=== PATIENT | female | born 1940 | race Caucasian/White ===

== ENCOUNTER 2024-11-18 12:03 | Emergency (ER) | payer OTHER ==
[~2024-11-18] VITALS: Ht 157.5 cm; Wt 65.8 kg
[2024-11-18] MEDS ORDERED: HUMALOG100 UNIT/2 (12:42)
[2024-11-18] MEDS ORDERED: LANTUS SOL100 UNIT/1 SUBCUTANEO (12:44)
[2024-11-18] MEDS ORDERED: XIGDUO XR 5 MG1 EACH PO (12:45)
[2024-11-18] MEDS ORDERED: LEVO-T25 MCG PO (12:46)
[2024-11-18] MEDS ORDERED: RAYOS1 MG PO (12:47)
[2024-11-18] MEDS ORDERED: AMIODARONE HCL100 MG PO (12:48)
[2024-11-18] MEDS ORDERED: NORVASC5 MG PO (12:48)
[2024-11-18] MEDS ORDERED: COZAAR50 MG PO (12:48)
[2024-11-18] MEDS ORDERED: HYDROCHLOROTH12.5 MG PO (12:49)
[2024-11-18] MEDS ORDERED: LIPITOR40 MG PO (12:50)
[2024-11-18] MEDS ORDERED: MONTELUKAST SODI4 M1 PO (12:50)
[2024-11-18] MEDS ORDERED: RISPERIDONE O0.25 MG PO (12:51)
[2024-11-18] MEDS ORDERED: VENLAFAXINE HC150 MG PO (12:51)
[2024-11-18] MEDS ORDERED: LAMOTRIGINE25 MG PO (12:51)
[2024-11-18] MEDS ORDERED: ELIQUIS2.5 MG PO (12:53)
[2024-11-18] MEDS ORDERED: CEFTRIAXONE SODIUM 1,000 MG VIAL IM STA (13:34)
[2024-11-18] MEDS ORDERED: HYDROCODONE/CHLORPHEN P-STIREX 5 ML ML PO STA (13:34)
[2024-11-18] MEDS ORDERED: CEFTRIAXONE SODIUM 1,000 MG VIAL ONE (14:00)
== END 2024-11-18 15:09 | disposition home or self-care (01) ==
LOC: ER 12:03
DX: J06.9 Acute upper respiratory infection, unspecified (principal)
CPT/HCPCS: 96372; 99282; J0696

== ENCOUNTER 2025-03-17 17:57 | Emergency (ER) | payer OTHER ==
[~2025-03-17] VITALS: Ht 157.5 cm; Wt 61.2 kg
[~2025-03-17 17:57] MED LIST: AMIODARONE HCL100 MG PO; COZAAR50 MG PO; ELIQUIS2.5 MG PO; HUMALOG100 UNIT/2; HYDROCHLOROTH12.5 MG PO; LAMOTRIGINE25 MG PO; LANTUS SOL100 UNIT/1 SUBCUTANEO; LEVO-T25 MCG PO; LIPITOR40 MG PO; MONTELUKAST SODI4 M1 PO; NORVASC5 MG PO; RAYOS1 MG PO; RISPERIDONE O0.25 MG PO; VENLAFAXINE HC150 MG PO; XIGDUO XR 5 MG1 EACH PO
[2025-03-17] MEDS ORDERED: MAGNESIUM SULFATE IN WATER 2 GM/50 ML PIGGYBAG IV ONE (19:15)
[2025-03-17] MEDS ORDERED: METHYLPREDNISOLONE SOD SUCC 125 MG VIAL IV ONE (19:15)
[2025-03-17] MEDS ORDERED: CEFTRIAXONE SODIUM 1,000 MG VIAL IV ONE (19:15)
[2025-03-17] MEDS ORDERED: IPRATROPIUM BROMIDE 0.5 MG/2.5 ML AMPUL.NEB IH SCH (19:15)
[2025-03-17] MEDS ORDERED: LEVALBUTEROL HCL 1.25 MG/3 ML SOLUTION IH SCH (19:15)
[2025-03-17] MEDS ORDERED: BENZONATATE 200 MG CAPSULE PO ONE (19:15)
[2025-03-17] MEDS ORDERED: MAGNESIUM SULFATE 50% 1,000 MG/2 ML VIAL ONE (20:03)
[2025-03-17] MEDS ORDERED: METHYLPREDNISOLONE SOD SUCC 125 MG VIAL ONE (20:03)
[2025-03-17] MEDS ORDERED: CEFTRIAXONE SODIUM 1,000 MG VIAL ONE (20:03)
[2025-03-17] MEDS ORDERED: IPRATROPIUM BROMIDE 0.5 MG/2.5 ML AMPUL.NEB IH ONE (20:25)
[2025-03-17] MEDS ORDERED: LEVALBUTEROL HCL 0.63 MG/3 ML SOLUTION IH ONE (20:26)
[2025-03-17 21:05] LABS: BASO % 0.9 % (0.1-1.2); EOS # 0.33 (0.04-0.54); EOS % 3.4 % (0.7-7.0); LYMPH # 2.24 (1.18-3.74); LYMPH % 23.2 % (19.3-53.1); MEAN PLATELET VOLUME 10.30 fl (9.4-12.4); MONO # 1.40 (0.24-0.82); NEUT # 5.58 (1.56-6.13); NEUT % 57.7 % (34.0-71.1); RED CELL DISTRIBUTION WIDTH 13.7 % (11.6-14.4)
[2025-03-17 21:11] LABS: MONO % 14.5 % (4.7-12.5)
[2025-03-17 21:45] LABS: COVID-19 AG NEGATIVE (NEGATIVE)
[2025-03-17] MEDS ORDERED: SINGULAIR10 MG PO (22:44)
[2025-03-17] MEDS ORDERED: PEPCID AC20 MG PO (22:44)
[2025-03-17] MEDS ORDERED: ZYRTEC10 MG PO (22:45)
[2025-03-17] MEDS ORDERED: BENZONATATE200 M1 PO (22:45)
[2025-03-17] MEDS ORDERED: LEVALBUTER0.63 MG/3 IH (22:45)
== END 2025-03-17 23:08 | disposition home or self-care (01) ==
LOC: ER 17:57
PROVIDERS: General Practice
DX: R05.9 Cough, unspecified (principal); J45.909 Unspecified asthma, uncomplicated; Z20.822 Contact with and (suspected) exposure to COVID-19; E11.9 Type 2 diabetes mellitus without complications; Z79.84 Long term (current) use of oral hypoglycemic drugs
CPT/HCPCS: 36415; 71046; 94640; 96365; 99283; J0696; J3475; J3490